=== PATIENT | female | born 1985 | race Caucasian/White ===

== ENCOUNTER 2017-09-19 10:17 | Emergency (ER) | payer OTHER ==
[~2017-09-19] VITALS: Ht 157.5 cm; Wt 65.9 kg
[2017-09-19 10:24] VITALS: BP 140/81; TEMP 98
[2017-09-19 12:52] VITALS: PULSE 82
== END 2017-09-19 12:53 | disposition home or self-care (01) ==
LOC: COL.ER 10:17
DX: S80.12XA Contusion of left lower leg, initial encounter (principal); W22.8XXA Striking against or struck by other objects, initial encounter; Y92.89 Other specified places as the place of occurrence of the external cause; Y99.0 Civilian activity done for income or pay